=== PATIENT | male | born 1965 | race Caucasian/White ===

== ENCOUNTER 2023-04-08 11:36 | Emergency (ER) | payer OTHER, SELFPAY ==
[2023-04-08 11:46] LABS: Glucose Point of Care 135 mg/dL (70-110)
--- NOTE | 2023-04-13 15:15 | DCPLANNER ---
senior operations manager called patient due to no primary care physician - patient declines help at this time, [facility].
== END 2023-04-08 11:55 | disposition left against medical advice (07) ==
PROVIDERS: Emergency Provider Family Medicine
DX: Z53.21 Procedure and treatment not carried out due to patient leaving prior to being seen by health care provider (principal)
CPT/HCPCS: 36416; 82962; 99283

== ENCOUNTER 2023-07-06 06:00 | Outpatient (RCR) | payer OTHER, SELFPAY | END 2023-07-07 23:59 | disposition home or self-care (01) | LOC: APT 06:00 | PROVIDERS: Visit Provider Internal Medicine | DX: M54.2 Cervicalgia (principal) | CPT/HCPCS: 97161 ==

== ENCOUNTER 2023-07-08 06:00 | Outpatient (RCR) | payer OTHER, SELFPAY | END 2023-08-06 23:59 | disposition home or self-care (01) | LOC: APT 06:00 | PROVIDERS: Visit Provider Internal Medicine | DX: M54.2 Cervicalgia (principal) | CPT/HCPCS: 97110 ==

== ENCOUNTER → 2023-07-19 14:43 | Outpatient (BNVA) | payer OTHER, SELFPAY | PROVIDERS: PCP Internal Medicine; Referring Provider Internal Medicine; Visit Provider Nurse Practitioner Family | DX: B35.3 Tinea pedis (principal); L57.0 Actinic keratosis; L82.1 Other seborrheic keratosis; L72.0 Epidermal cyst; D22.5 Melanocytic nevi of trunk; L81.4 Other melanin hyperpigmentation; L85.3 Xerosis cutis; L57.8 Other skin changes due to chronic exposure to nonionizing radiation; B35.1 Tinea unguium | CPT/HCPCS: 17000; 17003; 99204 ==

== ENCOUNTER → 2023-07-27 08:54 | Outpatient (BNVA) | payer OTHER, SELFPAY | PROVIDERS: PCP Internal Medicine; Visit Provider Dermatology | DX: D48.5 Neoplasm of uncertain behavior of skin (principal); L72.0 Epidermal cyst; L53.8 Other specified erythematous conditions | CPT/HCPCS: 10060; 11441; 12051 ==

== ENCOUNTER → 2023-08-08 09:11 | Outpatient (BNVA) | payer OTHER, SELFPAY | PROVIDERS: PCP Internal Medicine; Visit Provider Dermatology | DX: Z48.02 Encounter for removal of sutures (principal) | CPT/HCPCS: 99212 ==

== ENCOUNTER → 2023-09-05 14:29 | Outpatient (BNVA) | payer OTHER, SELFPAY | PROVIDERS: PCP Internal Medicine; Visit Provider Nurse Practitioner Family | DX: L82.1 Other seborrheic keratosis (principal); L81.4 Other melanin hyperpigmentation; D22.5 Melanocytic nevi of trunk; L85.3 Xerosis cutis; L57.8 Other skin changes due to chronic exposure to nonionizing radiation; B35.1 Tinea unguium; L82.0 Inflamed seborrheic keratosis | CPT/HCPCS: 17110; 99213 ==

== ENCOUNTER → 2023-10-04 13:25 | Outpatient (BNVA) | payer OTHER, SELFPAY | PROVIDERS: Visit Provider Student in an Organized Health Care Education/Training Program | DX: M25.561 Pain in right knee (principal); M25.562 Pain in left knee; Z98.890 Other specified postprocedural states | CPT/HCPCS: 73560; 73565; 99203 ==

== ENCOUNTER 2023-10-10 06:00 | Outpatient (RCR) | payer OTHER, SELFPAY | END 2023-11-06 23:59 | disposition home or self-care (01) | LOC: APT 06:00 | PROVIDERS: Visit Provider Family Medicine | DX: M54.50 Low back pain, unspecified (principal) | CPT/HCPCS: 97110; 97161 ==

== ENCOUNTER → 2024-01-17 14:04 | Outpatient (BNVA) | payer OTHER, SELFPAY | PROVIDERS: Visit Provider Nurse Practitioner Family | DX: B35.3 Tinea pedis (principal); B35.1 Tinea unguium; L57.8 Other skin changes due to chronic exposure to nonionizing radiation; L81.4 Other melanin hyperpigmentation; D22.62 Melanocytic nevi of left upper limb, including shoulder | CPT/HCPCS: 99214 ==

== ENCOUNTER 2024-06-26 09:57 | Outpatient (CLI) | payer OTHER, SELFPAY ==
--- NOTE | 2024-06-26 10:03 | MR_ITS ---
WS: [id number] MRI LEFT KNEE NONCONTRAST TECHNIQUE: Axial PD, coronal PD fat sat, coronal PD, sagittal PD, and sagittal PD fat-sat images obta ined. CLINICAL INFORMATION: LEFT KNEE PAIN COMPARISON: None. FINDINGS: Distal quadriceps and patella tendons are intact. Normal ACL and PCL. Normal medial and lateral menis cus. Grade III chondromalacia patella. No subchondral edema. Normal medial and lateral patellar retin aculum. Trace suprapatellar effusion. Tiny lobulated popliteal cyst measuring 12 x 4 mm. Small amount of prepatellar and infrapatellar soft tissue edema. Normal bone marrow signal in the femoral condyles and tibial plateau. Normal medial an d lateral collateral ligaments. Normal popliteus. Fibula head appears normal. No other suspicious findings. MR/MR knee LT wo con* [id number] IMPRESSION: 1. Normal ACL and PCL. 2. Normal medial and lateral meniscus. No acute appearing meniscal tears. 3. Grade III chondromalacia patella. No subchondral edema. Trace suprapatellar fluid. 4. Tiny popliteal cyst measuring 12 x 4 mm. Outbridge grading: grade III: partial-thickness cartilage loss with focal ulcer ation
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
== END 2024-06-26 09:58 | disposition home or self-care (01) ==
LOC: RAD 09:58
PROVIDERS: Visit Provider Family Medicine
DX: M22.42 Chondromalacia patellae, left knee (principal); M71.22 Synovial cyst of popliteal space [Baker], left knee; M43.26 Fusion of spine, lumbar region
CPT/HCPCS: 73721; 74018

== ENCOUNTER → 2024-09-05 13:59 | Outpatient (BNVA) | payer OTHER, SELFPAY | PROVIDERS: Visit Provider Nurse Practitioner Family | DX: B35.3 Tinea pedis (principal); B35.1 Tinea unguium; L57.8 Other skin changes due to chronic exposure to nonionizing radiation; L81.4 Other melanin hyperpigmentation; D22.62 Melanocytic nevi of left upper limb, including shoulder; L57.0 Actinic keratosis; L02.222 Furuncle of back [any part, except buttock and flank] | CPT/HCPCS: 17000; 99214 ==

== ENCOUNTER → 2024-12-06 09:06 | Outpatient (BNVA) | payer OTHER, SELFPAY | PROVIDERS: Visit Provider Nurse Practitioner Family | DX: B35.3 Tinea pedis (principal); B35.1 Tinea unguium; L57.8 Other skin changes due to chronic exposure to nonionizing radiation; L81.4 Other melanin hyperpigmentation; D22.62 Melanocytic nevi of left upper limb, including shoulder; L02.222 Furuncle of back [any part, except buttock and flank]; L82.1 Other seborrheic keratosis | CPT/HCPCS: 99214 ==

== ENCOUNTER → 2025-01-15 13:19 | Outpatient (BNVA) | payer OTHER, SELFPAY | PROVIDERS: Visit Provider Nurse Practitioner Family | DX: B35.3 Tinea pedis (principal); B35.1 Tinea unguium; T07.XXXA Unspecified multiple injuries, initial encounter; L82.0 Inflamed seborrheic keratosis; R20.8 Other disturbances of skin sensation; L29.89 Other pruritus; L53.8 Other specified erythematous conditions; Z78.9 Other specified health status; X58.XXXA Exposure to other specified factors, initial encounter | CPT/HCPCS: 17110; 99213 ==